=== PATIENT | male | born 1950 | race Caucasian/White ===

== ENCOUNTER 2018-12-20 00:08 | Inpatient (IN) | payer SELFPAY ==
[~2018-12-20] VITALS: Ht 180.3 cm; Wt 92.6 kg
[2018-12-20] MEDS ORDERED: ASPIRIN 81MG TABLET PO ONE (03:30)
[2018-12-20] MEDS ORDERED: NITROGLYCERIN OINT 1GM/INCH UDPKT TD ONE (03:30)
[2018-12-20 03:59] LABS: EOSINOPHILS % 4.4 % (0.0-5.0); HEMATOCRIT. 35.7 % (42.0-52.0); HEMOGLOBIN. 11.5 g/dL (14.0-18.0); LYMPHOCYTES % 21.2 % (20.0-50.0); MEAN CORPUSCULAR HEMOGLOBIN 27.4 pg (28.0-32.0); MEAN CORPUSCULAR VOLUME 85.2 fL (80.0-94.0); MEAN PLATELET VOLUME 9.3 fl (7.4-10.4); MONOCYTES % 7.1 % (2.0-8.0); NEUTROPHILS % 65.3 % (40.0-76.0); PLATELET 210 x1000/uL (130-400); RED BLOOD CELL COUNT 4.19 mill/uL (4.7-6.1); RED CELL DISTRIBUTION WIDTH 13.7 % (11.6-14.6)
[2018-12-20 04:06] LABS: CHLORIDE 108 mEq/L (98-107)
[2018-12-20 04:10] LABS: ETHANOL BLOOD < 10 mg/dL
[2018-12-20] MEDS ORDERED: IOHEXOL-350 100 ML BOTTLE ONE (06:47)
[2018-12-20] MEDS ORDERED: GUAIFENESIN 200MG/10ML SUGAR FREE UDC PO PRN (07:45)
[2018-12-20] MEDS ORDERED: DOCUSATE SODIUM 100MG CAPSULE PO PRN (07:45)
[2018-12-20] MEDS ORDERED: MAGNESIUM/ALUMINUM HYDROXIDE/SIMETHICONE 30ML UDC PO PRN (07:45)
[2018-12-20] MEDS ORDERED: NITROGLYCERIN 0.4MG TABLET SL SL PRN (07:45)
[2018-12-20] MEDS ORDERED: CLONIDINE 0.1MG TABLET PO PRN (07:45)
[2018-12-20] MEDS ORDERED: ONDANSETRON HCL 4MG/2ML INJ IV PRN (07:45)
[2018-12-20] MEDS ORDERED: IPRATROPIUM/ALBUTEROL 0.5-3(2.5)MG/3ML NEB INH PRN (07:45)
[2018-12-20] MEDS ORDERED: KETOROLAC 15MG/ML VIAL IV PRN (07:45)
[2018-12-20] MEDS ORDERED: ACETAMINOPHEN 325MG TABLET PO PRN (07:45)
[2018-12-20] MEDS: ASPIRIN 325MG EC TABLET PO SCH (09:00)
[2018-12-20 09:33] VITALS: BP 101/61
[2018-12-20 09:52] VITALS: BP 101/61
[2018-12-20] MEDS: FAMOTIDINE 20MG TABLET PO SCH ×3 (10:06→21:34)
[2018-12-20] MEDS: ENOXAPARIN 40MG/0.4ML SYR SUBCUT SCH (10:07)
[2018-12-20 12:00] VITALS: BP 111/63
[2018-12-20] MEDS ORDERED: REGADENOSON 0.4 MG/5 ML IV ONE ×2 (14:43→14:45)
[2018-12-20 16:00] VITALS: BP 106/42
[2018-12-20 17:15] LABS: *AMPHETAMINES SCREEN URINE NEGATIVE (NEGATIVE); *BARBITURATES SCREEN URINE NEGATIVE (NEGATIVE); *BENZODIAZEPINES SCREEN URINE NEGATIVE (NEGATIVE)
[2018-12-20 17:16] LABS: *COCAINE SCREEN URINE NEGATIVE (NEGATIVE); CANNABINOID URINE SCREEN NEGATIVE (NEGATIVE); OPIATES URINE SCREEN NEGATIVE (NEGATIVE); PHENCYCLIDINE URINE SCREEN NEGATIVE (NEGATIVE)
[2018-12-20 17:18] LABS: METHADONE URINE SCREEN NEGATIVE (NEGATIVE)
[2018-12-20 18:07] LABS: CREATINE KINASE MB FRACTION 3.2 ng/mL (0.5-3.6)
[2018-12-20 18:11] LABS: CREATINE KINASE 289 IU/L (39-308)
[2018-12-20 18:18] LABS: TOTAL IRON BINDING CAPACITY 434 ug/dL (250-450)
[2018-12-20 18:45] LABS: FOLIC ACID (FOLATE) SERUM >20 ng/mL ng/mL (>5.38)
[2018-12-20 18:57] LABS: VITAMIN B12 SERUM 417 pg/mL (211-911)
[2018-12-20 20:00] VITALS: BP 106/62
[2018-12-20] MEDS ORDERED: ZOLPIDEM TARTRATE 5MG TABLET PO PRN (21:00)
[2018-12-21] VITALS: BP 109/58
[2018-12-21 04:00] VITALS: BP 100/67
[2018-12-21 07:14] LABS: EOSINOPHILS % 4.7 % (0.0-5.0); HEMATOCRIT. 34.6 % (42.0-52.0); HEMOGLOBIN. 11.1 g/dL (14.0-18.0); LYMPHOCYTES % 17.4 % (20.0-50.0); MEAN CORPUSCULAR VOLUME 84.3 fL (80.0-94.0); MEAN PLATELET VOLUME 8.1 fl (7.4-10.4); NEUTROPHILS % 69.9 % (40.0-76.0); PLATELET 208 x1000/uL (130-400); RED BLOOD CELL COUNT 4.11 mill/uL (4.7-6.1); RED CELL DISTRIBUTION WIDTH 13.4 % (11.6-14.6)
[2018-12-21 08:00] VITALS: BP 116/71
[2018-12-21 08:01] LABS: CHLORIDE 109 mEq/L (98-107)
[2018-12-21 08:15] LABS: CREATINE KINASE 172 IU/L (39-308); CREATINE KINASE MB FRACTION 1.8 ng/mL (0.5-3.6); LDL CHOLESTEROL 110 mg/dL (5-100)
[2018-12-21 08:16] LABS: HDL CHOLESTEROL 36 mg/dL (40-59)
[2018-12-21] MEDS: ASPIRIN 325MG EC TABLET PO SCH (09:00)
[2018-12-21] MEDS: ENOXAPARIN 40MG/0.4ML SYR SUBCUT SCH (09:00)
[2018-12-21] MEDS: FAMOTIDINE 20MG TABLET PO SCH (09:00)
[2018-12-21 10:10] VITALS: BP 116/71
== END 2018-12-21 10:45 | disposition home or self-care (01) | DRG 203 ==
LOC: ER 00:08 → 5WST 05:26 → EDBEDREQTM 05:48 → EDBEDREQ 05:48 → ENRESERV 07:58 → UNDODISIN 12-21 10:00
PROVIDERS: ADMIT Internal Medicine; ATTEND Internal Medicine
DX: R07.89 Other chest pain (principal); E83.51 Hypocalcemia; D63.8 Anemia in other chronic diseases classified elsewhere; Z82.49 Family history of ischemic heart disease and other diseases of the circulatory system
CPT/HCPCS: 36415; 71045; 71275; 78452; 80061; 80305; 80320; 82550; 82553; 82607; 82746; 83036; 83540; 83550; 83735; 83880; 84484; 85379; 93005; 93017; 93970; 99285; A9500; A9537; J1650; J2785; Q9967; G0480